=== PATIENT | male | born 1990 | race Caucasian/White ===

== ENCOUNTER 2018-10-27 22:05 | Emergency (ER) | payer OTHER ==
[~2018-10-27] VITALS: Ht 165.1 cm; Wt 59.0 kg
[2018-10-27 22:10] VITALS: BP_SYST 128
[2018-10-27] MEDS ORDERED: HYDROcodone/ACETAMIN 7.5-325 MG TAB PO ONE (22:30)
[2018-10-28 00:40] VITALS: BP_SYST 128
== END 2018-10-28 00:40 | disposition home or self-care (01) ==
LOC: SED 22:05
DX: S62.396A Other fracture of fifth metacarpal bone, right hand, initial encounter for closed fracture (principal); W23.0XXA Caught, crushed, jammed, or pinched between moving objects, initial encounter; Y93.89 Activity, other specified; Y92.69 Other specified industrial and construction area as the place of occurrence of the external cause; Y99.0 Civilian activity done for income or pay
CPT/HCPCS: 99283